=== PATIENT | female | born 1970 | race Caucasian/White ===

== ENCOUNTER → 2024-09-29 | Outpatient (BNVA) | payer BC, SELFPAY | END | disposition home or self-care (01) | PROVIDERS: PCP Family Medicine; Referring Provider Family Medicine; Visit Provider Urology | DX: Z09 Encounter for follow-up examination after completed treatment for conditions other than malignant neoplasm (principal); Z98.890 Other specified postprocedural states | CPT/HCPCS: 96372; 99212; J1580; G0463 ==

== ENCOUNTER → 2024-10-20 | Outpatient (CLI) | payer BC, SELFPAY | END | disposition home or self-care (01) | LOC: SLDO 15:09 | PROVIDERS: Referring Provider Specialist; Visit Provider Specialist | DX: L03.90 Cellulitis, unspecified (principal) | CPT/HCPCS: 87070; 87205 ==

== ENCOUNTER → 2025-02-02 | Outpatient (BNVA) | payer BC, SELFPAY | END | disposition home or self-care (01) | PROVIDERS: PCP Family Medicine; Referring Provider Family Medicine; Visit Provider Urology | DX: Z09 Encounter for follow-up examination after completed treatment for conditions other than malignant neoplasm (principal); R68.82 Decreased libido; Z98.890 Other specified postprocedural states; F32.A Depression, unspecified; Z87.891 Personal history of nicotine dependence | CPT/HCPCS: 81003; 99212; G0463 ==

== ENCOUNTER → 2025-02-11 | Outpatient (CLI) | payer BC, SELFPAY ==
[2025-02-11 15:25] LABS: Collection Type, Urine Clean Catch
[2025-02-11 15:55] LABS: Basophils % (Auto) 1 % (0-2.5); Eosinophils # (Auto) 0.1 Thou/mm3 (0.0-0.5); Eosinophils % (Auto) 2 % (0-10); Hematocrit 39.2 % (36.0-46.0); Hemoglobin 13.4 g/dL (12.0-16.0); Immature Granulocytes % (Auto) 0 % (0-0); Immature Granulocytes Auto 0.01 Thou/mm3 (0.00-0.00); Lymphocytes # (Auto) 2.6 Thou/mm3 (1.0-4.8); Lymphocytes % (Auto) 44 % (10-50); Mean Corpuscular HGB Conc 34.2 g/dl (31.0-37.0); Mean Corpuscular Hemoglobin 30.2 pg (25.0-35.0); Mean Corpuscular Volume 89 fL (80-100); Monocytes # (Auto) 0.5 Thou/mm3 (0.0-0.8); Monocytes % (Auto) 8 % (0-12); Neutrophils # (Auto) 2.8 Thou/mm3 (1.8-7.7); Neutrophils % (Auto) 46 % (37-80); Nucleated Red Blood Cell % 0 /100 WBC (0); Platelet Count 252 Thou/mm3 (140-440); RDW Standard Deviation 38.1 fL (36.4-46.3); Red Blood Count 4.43 Miln/mm3 (4.00-5.20)
[2025-02-11 16:00] LABS: Glucose Estimated Average 108 mg/dL (80-131); Hemoglobin A1C 5.4 % Hgb (4.8-6.0)
[2025-02-11 16:03] LABS: Bilirubin,Urine Negative (Negative); Blood,Urine Negative (Negative); Clarity,Urine Clear (Clear/Hazy); Color,Urine Colorless (Lt Yel-Yel); Culture Indicated,Urine Not Indicated; Glucose, Urine Negative (Negative); Ketones,Urine Negative (Negative); Leukocyte Esterase,Urine Negative (Negative); Nitrite,Urine Negative (Negative); Protein,Urine Negative (Neg - Trace); RBC,Urine 1 /hpf (0-3); Specific Gravity,Urine 1.014 (1.001-1.035); Squamous Epithelial Cell,Urine 1 /hpf (0-5); Urobilinogen,Urine Negative mg/dL (0.0-1.0); WBC,Urine 2 /hpf (0-5)
[2025-02-11 16:21] LABS: Alanine Aminotransferase 11 U/L (10-49); Albumin, Serum 4.2 gm/dL (3.5-5.0); Albumin/Globulin Ratio 1.7 (1.2-2.2); Alkaline Phosphatase 93 U/L (46-116); Anion Gap 8 (7-16); Aspartate Amino Transferase 16 U/L (0-34); BUN/Creatinine Ratio 24 Ratio (12-20); Bilirubin,Total 0.3 mg/dL (0.3-1.2); Blood Urea Nitrogen 24 mg/dL (9-23); Calcium 9.2 mg/dL (8.3-10.6); Calcium (Corrected) 9.2 mg/dL (8.5-10.1); Carbon Dioxide 28.5 mMol/L (20.0-31.0); Cardiac Risk Estimate 3.9 RATIO (3.7-5.6); Chloride 104 mMol/L (98-107); Cholesterol 208 mg/dL (132-200); Free T4 (Free Thyroxine) 0.85 ng/dL (0.89-1.76); Globulin 2.5 gm/dL (2.3-3.5); Glucose 96 mg/dL (74-106); HDL Cholesterol 54 mg/dL (40-60); LDL Cholesterol,Calculated 132 mg/dL (0-130); Osmolality,Calculated 283 (275-295); Potassium 3.9 mMol/L (3.4-5.1); Sodium 140 mMol/L (136-145); Thyroid Stimulating Hormone 0.19 uIU/mL (0.55-4.78); Total Protein 6.7 gm/dL (5.7-8.2); Triglycerides 110 mg/dL (30-150); eGFR > 60 See Note
[2025-02-11 16:24] LABS: Vitamin D 25 Hydroxy Total 80.4 ng/mL (7.3-40.2)
== END | disposition home or self-care (01) ==
LOC: COPL 14:54
PROVIDERS: PCP Family Medicine; Referring Provider Registered Nurse; Visit Provider Registered Nurse
DX: E03.9 Hypothyroidism, unspecified (principal); R79.89 Other specified abnormal findings of blood chemistry; N95.1 Menopausal and female climacteric states
CPT/HCPCS: 36415; 80053; 80061; 81001; 82306; 82670; 83001; 83002; 83036; 84144; 84439; 84443; 85025

== ENCOUNTER → 2025-02-27 | Outpatient (CLI) | payer BC, SELFPAY ==
--- NOTE | 2025-02-27 08:45 | XR_ITS ---
Examination: Screening digital mammography, bilateral Computer aided detection 3-D breast Tomosynthesis, bilateral Date and time of exam: February 27, 2025 0837 hours Compared to mammograms dating to February 28, 2018 Indication: Screening Technique: Nonmagnified MLO, CC views of the breasts to been obtained, reconstructed from 3-D Tomosynthesis images. R2 computer aided detection program utilized for evaluation of suspicious masses and/or abnormal calcifications. 3-D Tomosynthesis images obtained. Findings: The breasts are heterogeneously dense, which may obscure small masses 11 mm nodule inner lower right breast Benign calcifications Impression: BI-RADS Category 0: Incomplete: Need additional imaging evaluation 11 mm nodule inner lower right breast, recommend follow-up spot tomographic views of this nodule as well as right breast sonography to complete the workup
== END | disposition home or self-care (01) ==
LOC: CDIM 08:25
PROVIDERS: Referring Provider Registered Nurse; Visit Provider Registered Nurse
DX: Z12.31 Encounter for screening mammogram for malignant neoplasm of breast (principal); N63.14 Unspecified lump in the right breast, lower inner quadrant
CPT/HCPCS: 77063; 77067

== ENCOUNTER → 2025-03-19 | Outpatient (CLI) | payer BC, SELFPAY ==
--- NOTE | 2025-03-19 13:00 | XR_ITS ---
Examination: Breast ultrasound, unilateral, right complete Date and time of exam: March 19, 2025 1245 hours INDICATIONS: Mammogram February 27, 2025 11 mm nodule inner lower right breast Technique: Real-time ponce scale ultrasonographic imaging performed right breast including all 4 quadrants as well as nipple retroareolar and axillary region. Findings: No cystic or solid mass Dilated retroareolar ducts IMPRESSION: BI-RADS Category 2: Benign findings
--- NOTE | 2025-03-19 13:30 | XR_ITS ---
Examination: Diagnostic digital mammography, unilateral, right Computer aided detection 3-D breast Tomosynthesis, unilateral Date and time of exam: March 19, 2025 1309 hours INDICATIONS: Mammogram February 27, 2025 11 mm nodule right breast lower inner quadrant Technique: Nonmagnified MLO, CC views of the right breast have been obtained, reconstructed from 3-D Tomosynthesis images. R2 computer aided detection program utilized for evaluation of suspicious masses and/or abnormal calcifications. 3-D Tomosynthesis images obtained. Findings: The breast is heterogeneously dense, which may obscure small masses Focal asymmetry does remain inner right breast, probably benign Impression: BI-RADS category 3: Probably benign findings One additional 6 month right mammogram follow-up is needed
== END | disposition home or self-care (01) ==
LOC: CDIM 12:32
PROVIDERS: PCP Family Medicine; Referring Provider Registered Nurse; Visit Provider Registered Nurse
DX: R92.331 Mammographic heterogeneous density, right breast (principal)
CPT/HCPCS: 76641; 77061; 77065; G0279

== ENCOUNTER → 2025-04-13 | Outpatient (CLI) | payer BC, SELFPAY ==
--- NOTE | 2025-04-13 09:56 | XR_ITS ---
Examination: CT abdomen and pelvis without contrast. Coronal 3-D reconstructions. Sagittal 2-D reconstructions. Date and time of exam:April 13, 2025 1018 hours Comparison August 08, 2018 INDICATIONS: Right lower abdominal pain left lower abdominal pain this week, history acute sigmoid diverticulitis. CTDI: vol (mGy): 7.74 DLP: (mGycm): 414 Technique: Axial images of the abdomen have been obtained, 3 mm slice thickness Intravenous contrast material has not been administered. Low dose protocols were performed. One or more of the following dose reduction techniques were used; automated exposure control, adjustment of the mA and/or KV according to patient size, use of iterative reconstruction technique. Findings: No focal liver or splenic lesions Contracted gallbladder No pancreatic or adrenal mass No renal or ureteral calculi, no hydronephrosis No bowel obstruction Normal appendix Colonic diverticulosis Mild acute sigmoid diverticulitis No peridiverticular abscess Retroverted uterus Urinary bladder intact IMPRESSION: Mild acute sigmoid diverticulitis No pelvic abscess
== END | disposition home or self-care (01) ==
LOC: CDIM 09:44
PROVIDERS: PCP Family Medicine; Referring Provider Registered Nurse; Visit Provider Registered Nurse
DX: K57.32 Diverticulitis of large intestine without perforation or abscess without bleeding (principal); N85.4 Malposition of uterus
CPT/HCPCS: 74176

== ENCOUNTER → 2025-05-18 | Outpatient (CLI) | payer BC, SELFPAY ==
[2025-05-18 11:33] LABS: Thyroid Stimulating Hormone 0.65 uIU/mL (0.55-4.78)
[2025-05-18 11:40] LABS: T4 (Thyroxine) 7.3 mcg/dL (4.5-10.9)
== END | disposition home or self-care (01) ==
LOC: COPL 10:27
PROVIDERS: PCP Family Medicine; Referring Provider Family Medicine; Visit Provider Family Medicine
DX: E03.9 Hypothyroidism, unspecified (principal); E66.09 Other obesity due to excess calories
CPT/HCPCS: 36415; 84436; 84443